=== PATIENT | male | born 1960 | race Caucasian/White ===

== ENCOUNTER 2017-05-17 17:47 | Inpatient (IN) | payer OTHER ==
[~2017-05-17] VITALS: Ht 190.5 cm; Wt 106.6 kg
[~2017-05-17 17:47] MED LIST: ATORVASTATIN CA10 M1 PO; INVOKANA100 M1 PO; JANUVIA100 M1 PO; LISINOPRIL10 M1 PO
[2017-05-17 18:20] LABS: ABSOLUTE BASOPHIL COUNT 0 /CUMM (0.0-0.2); ABSOLUTE EOSINOPHIL COUNT 0.1 /CUMM (0.0-0.7); ABSOLUTE GRANULOCYTE CT 6.5 /CUMM (1.4-6.5); ABSOLUTE LYMPH COUNT 1.8 /CUMM (1.2-3.4); ABSOLUTE MONOCYTE COUNT 0.7 /CUMM (0.10-0.60); BASOPHIL % 0.3 % (0.0-2.0); EOSINOPHIL % 1.5 % (0-5); GRANULOCYTE % 70.8 % (42.2-75.2); HEMATOCRIT 40.8 % (42-52); MEAN CORPUSCULAR HGB 32.8 PG (27.0-31.0); MEAN CORPUSCULAR HGB CONC 33.9 G/DL (33.0-37.0); MEAN CORPUSCULAR VOLUME 96.7 FL (80.0-94.0); MEAN PLATELET VOLUME 9.4 FL (7.4-10.4); PLATELET COUNT 204 /CUMM (130-400); RBC DISTRIBUTION WIDTH 12.2 % (11.5-14.5); RED BLOOD CELL CT 4.22 /CUMM (4.70-6.10); WHITE BLOOD CELL COUNT 9.2 /CUMM (4.8-10.8)
--- NOTE | 2017-05-17 18:41 | ED GENERAL ADULT ---
See Addendum History of Present Illness General Chief Complaint: General Adult Stated Complaint: SIB DR JACOBSON DIABETIC EVAL/INSULIN DRIP PER PT Source: patient Exam Limitations: no limitations Vital Signs & Intake/Output Vital Signs & Intake/Output Vital Signs Date Time Temp Pulse Resp B/P B/P Pulse O2 O2 Flow FiO2 Mean Ox Delivery Rate 05/17 1947 97 Room Air 05/17 1753 97.8 100 18 139/88 95 Room Air Allergies Coded Allergies: coconut oil (ITCHING 08/14/15) shellfish derived (VOMITING 08/14/15) Reconcile Medications Atorvastatin Calcium 10 MG TABLET 1 TAB PO DAILY HEART HEALTH (Reported) Canagliflozin (Invokana) 100 MG TABLET 1 TAB PO DAILY DIABETES (Reported) Lisinopril 10 MG TABLET 1 TAB PO DAILY HEART HEALTH (Reported) Sitagliptin Phosphate (Januvia) 100 MG TABLET 1 TAB PO DAILY DIABETES ( Reported) Triage Note: PT SENT TO ER BY HIS PMD FOR ELEVATED BS, ON ARRIVAL BS GREATER THAN 500 , PT STATES THAT HE IS NIDDM AND THAT HE HAD THE FLU 3 WEEKS AGO HAS NOT FELT RIGHT SINCE. PT STATES THAT HE WAS FEELING OK THIS AM BUT THIS AFTERNOON AFTER EATING HE STARTED TO VOMIT AND DECIDED TO GO SEE HIS DOCTOR. PTS PMD FEELS LIKE HE NEEDS TO BE STARTED ON INSULIN AND NEEDS FLUID Triage Nurses Notes Reviewed? yes Onset: Gradual Duration: getting worse Timing: recent history Severity: moderate Severity Numbers: 5 HPI: Patient is a 57-year-old male with a past medical history of type 2 diabetes, DVT currently on warfarin hypertension and hyperlipidemia who presents emergency room stating that approximately 3 weeks ago he had upper respiratory complaint and flulike symptoms where symptoms resolved with [id number] medications however in the past 5-7 days he's been complaining of increased frequency of urination increased thirst and generalized weakness and fatigue patient does state that "I was being stupid" by not taking my diabetic medications which is INVOKANA AND JANUVIA patient does state that on arrival today he has been complaining of abdominal discomfort and vomiting Patient denies any fever chills nausea vomiting abdominal pain chest pain shortness of breath or dysuria. Patient however has been taking his Coumadin and been compliant (Amilcar Babcock) Past History Travel History Traveled to [place] past 21 day No Medical History Any Pertinent Medical History? see below for history Neurological: NONE EENT: NONE Cardiovascular: NONE Respiratory: NONE Gastrointestinal: COLON CA ILLEOSTOMY/REVERSED Hepatic: NONE Renal: NONE Musculoskeletal: L LEG FX/SX/HDWE Psychiatric: NONE Endocrine: diabetes Blood Disorders: DVT Cancer(s): colon/rectal cancer HUMAN SERVICE COORDINATOR/Reproductive: NONE Tetanus Vaccine: 02/13/16 Surgical History Surgical History: colon resection Psychosocial History Who do you live with Patient/Self Services at Home None What is your primary language Romanian Tobacco Use: Never used ETOH Use: denies use Illicit Drug Use: denies illicit drug use Family History Hx Contributory? No (Amilcar Babcock) Review of Systems Review of Systems Constitutional: Reports: see HPI, malaise, weakness. EENTM: Reports: no symptoms. Respiratory: Reports: no symptoms. Cardiovascular: Reports: no symptoms. GI: Reports: no symptoms. Genitourinary: Reports: no symptoms. Musculoskeletal: Reports: no symptoms. Skin: Reports: no symptoms. Neurological/Psychological: Reports: no symptoms. Hematologic/Endocrine: Reports: see HPI, polyuria, polydipsia. Immunologic/Allergic: Reports: no symptoms. All Other Systems: Reviewed and Negative (Amilcar Babcock) Physical Exam Physical Exam General Appearance: no apparent distress, alert, comfortable Head: atraumatic Eyes: Bilateral: normal appearance, PERRL, EOMI. Ears, Nose, Throat: normal pharynx, normal ENT inspection Neck: normal inspection, supple Respiratory: normal breath sounds, chest non-tender, no respiratory distress Cardiovascular: regular rate/rhythm Peripheral Pulses: 2+ radial (R) Gastrointestinal: normal bowel sounds, soft, non-tender Extremities: normal inspection, normal capillary refill Neurologic/Psych: no motor/sensory deficits, awake, alert, oriented x 3 Skin: intact, normal color Core Measures ACS in differential dx? No CVA/TIA Diagnosis: No Sepsis Present: No Sepsis Focused Exam Completed? No (Amilcar Babcock) Progress Differential Diagnoses I considered the following diagnoses in my evaluation of the patient: [HHS, hyperGLYCEMIA, VIRAL syndrome] Plan of Care: Orders Procedure Date/time Status Heart Healthy Diet 05/18 B Active ED Holding Orders 05/18 2047 Active Admit to inpatient 05/18 2047 Active Code Status 05/18 2047 Active EKG 05/17 192 Active ED Holding Orders 05/17 1856 Active Admit to inpatient 05/17 185 Active Vital Signs 05/17 185 Active Code Status 05/17 185 Complete Add-on Test (ER Only) 05/17 184 Active PARTIAL THROMBOPLASTIN TIME 05/17 180 Complete PROTHROMBIN TIME 05/17 180 Complete LACTIC ACID 05/17 1806 Complete Add-on Test (ER Only) 05/17 180 Active MIXED VENOUS BLOOD GAS (GEN) 05/17 175 Active URINALYSIS 05/18 1755 Complete TROPONIN LEVEL 05/18 1755 Complete SERUM OSMOLALITY 05/18 1755 Complete COMPREHENSIVE METABOLIC PANEL 05/18 1755 Complete CBC WITHOUT DIFFERENTIAL 05/18 1755 Complete ACETONE 05/18 1755 Complete Laboratory Tests 05/17/17 184: APTT Cancelled 05/17/17 182: Urine Color STRAW, Urine Clarity CLEAR, Urine pH 6.0, Ur Specific [place] <= 1.005, Urine Protein NEG, Urine Ketones NEG, Urine Nitrite NEG, Urine Bilirubin NEG, Urine Urobilinogen 0.2, Ur Leukocyte Esterase NEG, Ur Microscopic EXAM NOT REQUIRED, Urine Hemoglobin NEG, Urine Glucose >=1000 H 05/17/171806: Bicarbonate Actual 26, Mixed VBG pH 7.33, Mixed VBG pCO2 50, Mixed VBG O2 Saturation 15 L, Carboxyhemoglobin 0.3 L, O2 Concentration % R/A, Anion Gap 13 , Estimated GFR > 60, BUN/Creatinine Ratio 24.2, Glucose 685 *H, Serum Osmolality 326 H, Lactic Acid 2.9 H, Calcium 10.0, Total Bilirubin 1.4 H, AST 81 H, ALT 123 H, Alkaline Phosphatase 213 H, Troponin I 0.04, Total Protein 7.8, Albumin 4.3, Globulin 3.5, Albumin/Globulin Ratio 1.2, PT 15.8 H, INR 1.44 H, APTT 35, CBC w Diff NO MAN DIFF REQ, RBC 4.22 L, MCV 96.7 H, MCH 32.8 H, MCHC 33.9, RDW 12.2, MPV 9.4, Gran % 70.8, Lymphocytes % 20.0 L, Monocytes % 7.4, Eosinophils % 1.5, Basophils % 0.3, Absolute Granulocytes 6.5, Absolute Lymphocytes 1.8, Absolute Monocytes 0.7 H, Absolute Eosinophils 0.1, Absolute Basophils 0, Phlebotomy Draw Site VENOUS, Acetone Level NEGATIVE Patient on initial presentation was resting comfortable has unremarkable physical exam patient however HAS findings of significantly elevated glucose where IV was established patient was administered IV fluids and insulin. No concerns at this time of DKA Discussed admission with Dr. Moss who agrees and is aware and will consult Patient has been able tolerate by mouth liquids Patient was subtherapeutic INR and took his 5 mg of Coumadin however he will be given administered 2 and half milligrams of Coumadin discussed admission with patient who agrees and has no questions she is resting comfortably at bedside Initial ED EKG: SINUS RHYTHM 77 PVC/PAC Hand-Off Endorsed To: Rony Puentes DO Endorsed Time: 2022 Pending: consult (Amilcar Babcock) Departure Departure Disposition: STILL A PATIENT Condition: Stable Clinical Impression Primary Impression: Hyperglycemia Referrals: Neptali Hawk DO (PCP/Family) Departure Forms: Customer Survey General Discharge Information Admission Note Documentation of Exam: Documentation of any treatments & extenuating circumstances including Concerns Regarding Discharge (functional status, medication knowledge or non-compliance, living conditions, etc.) that warrant an admission rather than observation: [ Patient requires IV fluids endocrinology consultation insulin repeat labs] (Amilcar Babcock) PA/REAL ESTATE MANAGEMENT SPECIALIST Co-Sign Statement Statement: ED Attending supervision documentation- [X] I saw and evaluated the patient. I have also reviewed all the pertinent lab results and diagnostic results. I agree with the findings and the plan of care as documented in the PA's/REAL ESTATE MANAGEMENT SPECIALIST's documentation. [] I have reviewed the ED Record and agree with the PA's/REAL ESTATE MANAGEMENT SPECIALIST's documentation. [] Additions or exceptions (if any) to the PAs/REAL ESTATE MANAGEMENT SPECIALIST's note and plan are summarized below: [] Ptatient with severe hyperglycemia and increased serum osmolarity. He is being admitted for IV fluids and endocrinology consultation, IV insulin therapy. (Rony Puentes DO) Critical Care Note Critical Care Note Critical Care Time: 75-104 min (Amilcar Babcock)
[2017-05-17 19:03] LABS: PT 15.8 SEC (9.4-12.5); PTT 35 SEC (25-37)
--- NOTE | 2017-05-17 21:13 | History & Physical ---
Chelly Jones MD 05/17/172111: General Information and HPI MD Statement: I have seen and personally examined KAYODE TALAVERA and documented this H&P. The patient is a 57 year old M who presented with a patient stated chief complaint of symptoms of hyperglycemia Source of Information: patient, old records, PCP Exam Limitations: no limitations History of Present Illness: Patient is a 57-year-old man with a past medical history significant for type 2 diabetes for 3 years NOT on any current medications, DVT on chronic warfarin, hypertension, hyperlipidemia, colon cancer secondary to ulcerative colitis status post ileostomy and reversal in the , that is sent in by PCP Dr. Hawk for hyperglycemic evaluation. The patient states that about 3 weeks ago he had the flu and " has not felt great since then". At that time he had diarrhea, vomiting, abdominal pain and a fever of 102. About 1-1/2 weeks ago the patient notes he had increased urinary frequency, thirst, weakness, fatigue. Following this he had a "good couple of days" and then today after eating lunch, abruptly began to violently vomit. The patient states that he has not taken his diabetic medications Invokana and Januvia since . He has not taken his blood sugar for a couple of years. On exam, the patient denies any abdominal pain, fever, chills, chest pain, shortness of breath, diarrhea, headache, division changes, loss of consciousness , previous hospitalizations for hyperglycemia, previous irregular heart rhythms. The patient states that he's lost about 15 pounds in the past 3 weeks but attributes that to the flu. Overall since the patient's diabetes diagnosis he has lost about 90 pounds. The patient states that he broke his leg in 2004, no issues for 3 years until he woke up one day with a swollen leg, left side, found to have DVT. Patient is now on chronic Coumadin therapy 7.5 mg on Tuesday and Tuesday and 5 mg the other days. He denies any issues of increased bleeding, recent injury. The patient states that in November he lost his job. The patient has had issues with alcohol the past but has been sober for the past 4 weeks. The patient denies any smoking or drug history. Allergies/Medications Allergies: Coded Allergies: coconut oil (ITCHING 08/14/15) shellfish derived (VOMITING 08/14/15) Compliance With Home Meds: POOR Past History Travel History Traveled to [place] past 21 day No Medical History Neurological: NONE EENT: NONE Cardiovascular: NONE Respiratory: NONE Gastrointestinal: COLON CA ILLEOSTOMY/REVERSED Hepatic: NONE Renal: NONE Musculoskeletal: L LEG FX/SX/HDWE Psychiatric: NONE Endocrine: diabetes Blood Disorders: DVT Cancer(s): colon/rectal cancer INTERNAL CARVER/Reproductive: NONE Tetanus Vaccine: 02/13/16 Surgical History Surgical History: colon resection Past Family/Social History Family History Relations & Conditions if any MOTHER FHx: colon cancer FATHER FHx: colon cancer Psychosocial History Services at Home: None ETOH Use: denies use Illicit Drug Use: denies illicit drug use Functional Ability ADLs Independent: dressing, eating, toileting, bathing. Ambulation: independent Review of Systems Review of Systems Constitutional: Reports: malaise, weakness. EENTM: Reports: no symptoms. Cardiovascular: Reports: no symptoms. Respiratory: Reports: no symptoms. GI: Reports: nausea, vomiting. Genitourinary: Reports: frequency. Musculoskeletal: Reports: no symptoms. Skin: Reports: no symptoms. Neurological/Psychological: Reports: no symptoms. Hematologic/Endocrine: Reports: polyuria, polydipsia. Exam & Diagnostic Data Last 24 Hrs of Vital Signs/I&O Vital Signs Date Time Temp Pulse Resp B/P B/P Pulse O2 O2 Flow FiO2 Mean Ox Delivery Rate 05/17 2327 97.4 87 18 140/60 98 Room Air 05/17 2242 88 18 164/88 98 Room Air 05/17 2100 98.2 61 18 145/70 98 Room Air 05/17 1947 97 Room Air 05/17 1753 97.8 100 18 139/88 95 Room Air Intake & Output 05/18 0800 / 0000 05/17 1600 Intake Total Output Total 150 150 Balance -150 -150 Output, Urine 150 150 Patient 235 lb Weight Weight Reported by Patient Measurement Method Physical Exam General Appearance Alert, Oriented X3, Cooperative, No Acute Distress Skin No Rashes, No Breakdown, No Significant Lesion Skin Temp/Moisture Exam: Warm/Dry Sepsis Skin Exam (color): Normal for Ethnicity HEENT Atraumatic, PERRLA, EOMI, Mucous Membr. moist/pink Neck Supple Cardiovascular Regular Rate, Normal S1, Normal S2, No Murmurs Lungs Clear to Auscultation, Normal Air Movement Abdomen Normal Bowel Sounds, Soft, No Tenderness, No Hepatospenomegaly, No Masses Neurological Normal Speech Extremities No Clubbing, No Cyanosis, No Edema, Normal Pulses, No Tenderness/ Swelling Vascular Normal Pulses, Pulses Symmetrical Last 24 Hrs of Labs/Choco: Laboratory Tests 05/18/17 0128: Lactic Acid Pending 05/17/17 2246: Anion Gap 13, Estimated GFR > 60, BUN/Creatinine Ratio 25.6 H 05/17/17 2246: Lactic Acid 4.0 H, Total Bilirubin 1.1, Direct Bilirubin 0.6 H, AST 70 H, ALT 100 H, Alkaline Phosphatase 174 H, Total Protein 6.9, Albumin 3.6 05/17/17 1842: APTT Cancelled 05/17/17 1820: Urine Color STRAW, Urine Clarity CLEAR, Urine pH 6.0, Ur Specific [place] <= 1.005, Urine Protein NEG, Urine Ketones NEG, Urine Nitrite NEG, Urine Bilirubin NEG, Urine Urobilinogen 0.2, Ur Leukocyte Esterase NEG, Ur Microscopic EXAM NOT REQUIRED, Urine Hemoglobin NEG, Urine Glucose >=1000 H 05/17/17 1807: Bicarbonate Actual 26, Mixed VBG pH 7.33, Mixed VBG pCO2 50, Mixed VBG O2 Saturation 15 L, Carboxyhemoglobin 0.3 L, O2 Concentration % R/A, Anion Gap 13 , Estimated GFR > 60, BUN/Creatinine Ratio 24.2, Glucose 685 *H, Hemoglobin A1c Pending, Serum Osmolality 326 H, Lactic Acid 2.9 H, Calcium 10.0, Phosphorus 5.6 H, Magnesium 1.9, Total Bilirubin 1.4 H, AST 81 H, ALT 123 H, Alkaline Phosphatase 213 H, Troponin I 0.04, Total Protein 7.8, Albumin 4.3, Globulin 3.5, Albumin/Globulin Ratio 1.2, PT 15.8 H, INR 1.44 H, APTT 35, CBC w Diff NO MAN DIFF REQ, RBC 4.22 L, MCV 96.7 H, MCH 32.8 H, MCHC 33.9, RDW 12.2, MPV 9.4, Gran % 70.8, Lymphocytes % 20.0 L, Monocytes % 7.4, Eosinophils % 1.5, Basophils % 0.3, Absolute Granulocytes 6.5, Absolute Lymphocytes 1.8, Absolute Monocytes 0.7 H, Absolute Eosinophils 0.1, Absolute Basophils 0, Phlebotomy Draw Site VENOUS, Acetone Level NEGATIVE Assessment/Plan Assessment: Patient is a 57-year-old man with a past medical history significant for type 2 diabetes for 3 years NOT on any current medications, DVT on chronic warfarin, hypertension, hyperlipidemia, colon cancer secondary to ulcerative colitis status post ileostomy and reversal in the s, that is sent in by PCP Dr. Hawk for hyperglycemic evaluation. The patient had a recent viral illness, complains of increased thirst, urination, weakness, fatigue, and today had a bout of severe vomiting. The patient confesses that he hasn't taken his diabetic medications since January and hasn't regularly checked his blood sugar levels for 2 years. He does not follow with an customer engagement analyst. In the ED, the patient's vitals were stable, blood pressure 139/88, afebrile. His blood glucose on admission was 685. His EKG which lasts showed sinus rhythm at a rate of 73 now shows a sinus arrhythmia, positive P waves, rate of 77. The patient has no cardiac history except for DVT on chronic warfarin, hypertension, hyperlipidemia. He does not follow with a mortar mixer. His WBC count was found to be normal, hemoglobin mildly low, INR 1.44 (goal 2-3), positive glucose but no protein or ketones on UA, anion gap of 13, low potassium at 3.3, normal creatinine, lactic acid of 2.9 on admission, elevated LFTs including direct bilirubin of 0.6, AST 70, a LT 100, alkaline phosphatase 174, acetone level negative, phosphorus level 5.6, normal calcium and magnesium, serum osmolality of 326, mixed venous blood gas pH normal. Plan Out-lpzzdze-bzuasgyrl diabetes mellitus: The differential for the patient's severe vomiting includes gastroenteritis, food poisoning, but is most likely caused by his uncontrolled hyperglycemia, associated with his increased urinary frequency, thirst, weakness, fatigue. The patient admits to not taking his diabetic medications or checking up on his blood sugar. As the patient is a type II diabetic he is more prone to HHS than DKA. From his labs he has a normal anion gap, no acetone level, no acidosis on mixed venous blood gas. His presenting glucose was 685 and his serum osmolality is 326. HHS is more associated with blood glucose levels over 600 and serum osmolality of greater than 320. Elevations in the concentration of liver function enzymes, bilirubin may be secondary to dehydration. The patient was found to be dehydrated and has elevated BUN. He was not found to have any ketonuria. Physical exam findings were negative except for evidence of dehydration. The patient showed no alteration in consciousness. -Start normal saline at a rate of 1 25 mL per hour -Zofran for nausea and vomiting 4 mg every 6 as needed -We have spoken with Dr. Moss, customer engagement analyst, who suggested that we give 20 units of Levemir once and recheck patient's glucose levels in one hour and 2 hours after that, readings were 256 and 170 respectively. -Accuchecks TID/HS -Start novolog sliding scale coverage, over 250 mg/dl start to add insulin coverage, 2 units per ever 50mg/dl glucose increase until 400mg/dl with instructions to call MD after -Hemoglobin A1c -Trend lactic acid: Increased from 2.9-4.04 hours later and then decreased to 1.3 3 hours after that. -Place patient on clear liquid diet and advance as tolerated -We trended LFTs which showed resolution with hydration. EKG change: Noted new sinus arrhythmia. Patient has no symptoms. -No intervention at this time -Repeat EKG in am -Patient instructed to follow up with his PCP on discharge. He has no mortar mixer. Hypokalemia: Hyperkalemia is commonly seen on presentation of patients with HHS secondary to insulin deficiency causing extracellular shift. However this patient was found to have a potassium of 3.3. -We have repleted him with 80 mg K Dur and KCl intravenous 10 mEq 2 as insulin will cause potassium shift into cells -Follow up BEP History DVT -Goal INR is 2.5 -INR found to 1.44 on admission -Patient reports having taken 5mg warfarin today -Dose another 2.5mg Chronic medical problems -Lisinopril 10 mg daily for hypertension Patient is DNR DNI Clear liquid diet DVT prophylaxis with Coumadin (chronically) As Ranked By This Provider Problem List: 1. Hyperglycemia Core Measures/Misc (11/28) Acute Coronary Syndrome ACS Diagnosis: No Congestive Heart Failure Congestive Heart Failure Diagnosis No Cerebrovascular Accident CVA/TIA Diagnosis: No VTE (View Protocol) VTE Risk Factors VTE (Previous) No Mechanical VTE Prophylaxis d/t N/A MechProphylax Ordered No VTE Pharm Prophylaxis d/t NA PharmProphylax ordered Sepsis (View protocol) Sepsis Present: No Davion Rachel 05/17/17 2327: General Information and HPI Allergies/Medications Home Med list Atorvastatin Calcium 10 MG TABLET 1 TAB PO DAILY HEART HEALTH (Reported) Canagliflozin (Invokana) 100 MG TABLET 1 TAB PO DAILY DIABETES (Reported) Lisinopril 10 MG TABLET 1 TAB PO DAILY HEART HEALTH (Reported) Sitagliptin Phosphate (Januvia) 100 MG TABLET 1 TAB PO DAILY DIABETES ( Reported) Warfarin Sodium 5 MG TABLET 1 TAB PO DAILY BLOOD THINNER (Reported) Resident Review Statement Resident Statement: examined this patient, discussed with application support intern, agreed with application support intern, discussed with family, reviewed EMR data (avail), reviewed images Other Findings: He is on 57-year-old man with past medical history of type 2 diabetes, hypertension, DVT on common presented to emergency department from his primary care office for blood sugar control. Patient was diagnosed with diabetes about 4 years ago and he was prescribed Invokana and Januvia but he is not compliant with his medications, he found to have elevated blood sugar with no ketones, no acidosis and no AG, serum osmolality was elevated 326, clinical picture correlated hyperosmolar hyperglycemic state, case discussed with attending and with customer engagement analyst we will manage him with Levemir 20 units tonight, and we will start insulin sliding scale as ordered we will hydrate him with IV normal saline and we will repeat his lab admit night, potassium will be repleted, Accu-Chek before meals and at bedtime, customer engagement analyst to see the patient at a.m., will check A1c, will trend lactic acid, patient noted to have irregular pulse on the examination with ekg decuments A.fib, consider placing a cardiology consult for new onset A.fib ( Patient is not aware of any irregular rhythm in the past) He is on clear liquid diet, advance as tolerated DVT prophylaxis he is on Coumadin, full code [place] [employer], [facility] 05/18/17 0339: Attending MD Review Statement Attending Statement Attending MD Statement: examined this patient, discuss w/resident/PA/UNHAIRER, agreed w/resident/PA/UNHAIRER, reviewed images, amended to note Attending Assessment/Plan: 57 yo M with h/o T2DM, LLE DVT on coumadin, HTN, HLD, ulcerative colitis and colon cancer s/p colectomy, is sent in by his PCP for elevated blood sugars. Patient lost his job last year, he has no insurance and he stopped taking all his medications (excluding coumadin) since Feb 2017. About 3 weeks back, he had 'flu-like symptoms' that resolved with OTC meds, however he developed polyuria, polydipsia, weakness and fatigue so he started taking all his medications about 2 weeks back. He continued to feel fatigued and today he was nauseous and vomited all of the lunch he ate. He currently denies abdominal pain, chest discomfort, dyspnea, nausea or palpitations. He is frustrated that it was a bad decision to stop taking his diabetic meds. He states, "I was being stupid". He is also very anxious as his mother is admitted to [facility] due to her respiratory issues. Vitals stable. Exam suggestive of very dry mucous membranes, otherwise unremarkable. Labs: macrocytic anemia, INR 1.44, Na 129, BUN 29, glucose 685, S. Osm 326, lactic acid 2.9 --> 4.0, T. Bili 1.4, AST 81, ALT 123, Alk phos 213, trop neg. UA glucosuria. Acetone neg. VB.33/50/26. EKG: sinus arrhythmia, multiple PVC, PACs, LAD, Qtc 431. Assessment and plan: 1. Hyperosmolar hyperglycemic state 2. Type 2 diabetes mellitus 3. Noncompliance with medications 4. Pseudohyponatremia corrected sodium is 143 5. Lactic acidosis 6. Transaminitis 7. Subtherapeutic INR on coumadin for DVT 8. Anxiety - Admit to General medicine - Accucheks TIDAC/HS - Recheck stat BEP, lactic acid and LFTs - Aggressive IV hydration with normal saline received 3 L bolus in ER - Continue maintenance at 125/hr - Clear liquid diet, advance diet as tolerated in AM - Endo consult - Levkaye and novolog SS as suggested - Check HbA1c - Counseled about importance of medication compliance - Hold januvia and invokana - Patient has received 7.5 mg coumadin in ER, check INR in AM, dose coumadin accordingly - Hold statin, recheck LFTs after hydration - Resume lisinopril for HTN - Recheck EKG and troponin in AM - I asked the patient if he would like to speak with a Psychiatrist about his anxiety, but he denies for now. DVT ppx coumadin. DNR/I.
[2017-05-17] MEDS ORDERED: WARFARIN SODIUM5 M1 PO (22:28)
[2017-05-17 23:27] VITALS: BP 140/60
--- NOTE | 2017-05-18 03:26 | Admission Certification ---
Admission Certification Certification Statement - As attending physician, I certify that at the time of - admission, based on clinical presentation, severity of - symptoms, need for further diagnostic testing and - therapeutic interventions, and risk of adverse outcomes - without in-hospital treatment, in my clinical assessment, - this patient requires an acute hospital stay for a minimum - of two nights or longer. I have also considered psychsocial - factors such as support system, advanced age, financial - issues, cognitive issues, and failed out-patient treatments, - past re-admission history, safety of patient, and lack of - compliance as applicable. Specific rationale supporting this admission is: Hyperosmolar hyperglycemic state, noncompliance with medications.
[2017-05-18 06:46] VITALS: BP 124/77
--- NOTE | 2017-05-18 07:23 | PN- Housestaff ---
Ngoc WALDROP,Bari 05/18/1722: Subjective Follow-up For: [facility] Subjective: Patient was seen and examined at bedside. He is resting comfortably. He had no acute events overnight. He currently has no complaints. He denies any polydipsia, polyuria, pain of any kind, nausea, vomiting, fever, chills Review of Systems Constitutional: Denies: chills, fever, malaise. Cardiovascular: Reports: no symptoms. Respiratory: Reports: no symptoms. Gastrointestinal: Reports: no symptoms. Genitourinary: Reports: no symptoms. Musculoskeletal: Reports: no symptoms. Objective Last 24 Hrs of Vital Signs/I&O Vital Signs Date Time Temp Pulse Resp B/P B/P Pulse O2 O2 Flow FiO2 Mean Ox Delivery Rate 05/18 0646 97.9 72 18 124/77 98 Room Air 05/17 2327 97.4 87 18 140/60 98 Room Air 05/17 2242 88 18 164/88 98 Room Air 05/17 2100 98.2 61 18 145/70 98 Room Air 05/17 1947 97 Room Air 05/17 1753 97.8 100 18 139/88 95 Room Air Intake & Output 05/18 0800 05/18 0000 05/17 1600 Intake Total Output Total 150 150 Balance -150 -150 Output, Urine 150 150 Patient 235 lb Weight Weight Reported by Patient Measurement Method Physical Exam General Appearance: Alert, Oriented X3, Cooperative, No Acute Distress Skin Temp/Moisture Exam: Warm/Dry Sepsis Skin Exam (color): Normal for Ethnicity Cardiovascular: Regular Rate, Normal S1, Normal S2 Lungs: Clear to Auscultation, Normal Air Movement Abdomen: Soft, No Tenderness, hyperactive bowel sounds, abdominal surgical scar in the midline. Neurological: Normal Gait Extremities: No Clubbing, No Cyanosis, No Edema Current Medications: Current Medications Sig/Prakash Start time Last Medication Dose Route Stop Time Status Admin Acetaminophen 650 MG Q6P PRN 05/17 2230 AC PO Albumin Human 12.5 GM ONCE ONE 05/18 0145 CAN IV 05/18 0146 Atorvastatin Calcium 10 MG DAILY 05/18 1000 CAN PO Insulin Aspart 0 TIDAC/HS 05/17 2245 AC 05/17 SC 2337 Insulin Detemir 20 UNITS ONCE ONE 05/17 2230 DC 05/17 SC 05/17 2231 224 Insulin Human Regular 8 UNITS ONCE ONE 05/17 1900 DC 03/ IV / 1901 1907 Insulin Human Regular 10 UNITS ONCE ONE 05/17 1845 DC / SC 05/17 1846 1906 Lisinopril 10 MG DAILY 05/18 1000 AC PO Ondansetron HCl 4 MG Q6P PRN 05/17 2230 AC IV Potassium Chloride 10 MEQ Q1H 05/18 0300 DC 05/18 IV 05/18 0401 0449 Potassium Chloride 80 MEQ ONCE ONE 05/18 0245 DC 05/18 PO 05/18 0246 0347 Sodium Chloride 1,000 ML Q13H 05/17 2130 DC 03/ IV 05/18 1829 2337 Sodium Chloride 1,000 ML BOLUS ONE 05/17 1900 DC / IV 05/17 1959 2045 Sodium Chloride 1,000 ML BOLUS ONE 05/17 1845 DC / IV / 1944 1853 Sodium Chloride 1,000 ML BOLUS ONE 05/17 1845 DC 03/ IV / 1944 1946 Warfarin Sodium 2.5 MG COUMADIN 1700 ONE 05/17 2245 CAN PO 05/17 224 Warfarin Sodium 2.5 MG ONCE ONE 05/17 2030 DC 03/ PO 05/17 2031 2115 Last 24 Hrs of Lab/Choco Results Last 24 Hrs of Labs/Mics: Laboratory Tests 05/18/17617: Sodium Pending, Potassium Pending, Chloride Pending, Carbon Dioxide Pending, Anion Gap Pending, BUN Pending, Creatinine Pending, BUN/Creatinine Ratio Pending , PT Pending, INR Pending, CBC w Diff Pending, WBC Pending, RBC Pending, Hgb Pending, Hct Pending, MCV Pending, MCH Pending, MCHC Pending, RDW Pending, Plt Count Pending, MPV Pending 05/18/17 0128: Lactic Acid 1.3 05/17/172245: Anion Gap 13, Estimated GFR > 60, BUN/Creatinine Ratio 25.6 H 05/17/172245: Lactic Acid 4.0 H, Total Bilirubin 1.1, Direct Bilirubin 0.6 H, AST 70 H, ALT 100 H, Alkaline Phosphatase 174 H, Total Protein 6.9, Albumin 3.6 05/17/17 184: APTT Cancelled 05/17/17 1820: Urine Color STRAW, Urine Clarity CLEAR, Urine pH 6.0, Ur Specific [place] <= 1.005, Urine Protein NEG, Urine Ketones NEG, Urine Nitrite NEG, Urine Bilirubin NEG, Urine Urobilinogen 0.2, Ur Leukocyte Esterase NEG, Ur Microscopic EXAM NOT REQUIRED, Urine Hemoglobin NEG, Urine Glucose >=1000 H 05/17/17 1807: Bicarbonate Actual 26, Mixed VBG pH 7.33, Mixed VBG pCO2 50, Mixed VBG O2 Saturation 15 L, Carboxyhemoglobin 0.3 L, O2 Concentration % R/A, Anion Gap 13 , Estimated GFR > 60, BUN/Creatinine Ratio 24.2, Glucose 685 *H, Hemoglobin A1c Pending, Serum Osmolality 326 H, Lactic Acid 2.9 H, Calcium 10.0, Phosphorus 5.6 H, Magnesium 1.9, Total Bilirubin 1.4 H, AST 81 H, ALT 123 H, Alkaline Phosphatase 213 H, Troponin I 0.04, Total Protein 7.8, Albumin 4.3, Globulin 3.5, Albumin/Globulin Ratio 1.2, PT 15.8 H, INR 1.44 H, APTT 35, CBC w Diff NO MAN DIFF REQ, RBC 4.22 L, MCV 96.7 H, MCH 32.8 H, MCHC 33.9, RDW 12.2, MPV 9.4, Gran % 70.8, Lymphocytes % 20.0 L, Monocytes % 7.4, Eosinophils % 1.5, Basophils % 0.3, Absolute Granulocytes 6.5, Absolute Lymphocytes 1.8, Absolute Monocytes 0.7 H, Absolute Eosinophils 0.1, Absolute Basophils 0, Phlebotomy Draw Site VENOUS, Acetone Level NEGATIVE Assessment/Plan Assessment: Patient is [id number] male with a PMH significant for type II DM noncompliant with medication and finger stick glucose monitoring, DVT on warfarin, HTN, HLD, colon cancer status post ileostomy and reversal. Patient presented to the ED at recommendations of his PCP Dr. Mccray, after presented with severe nausea and vomiting and was found to have elevated blood glucose. Patient admits to being noncompliant with his finger stick glucose checks and medication for several months. CODE STATUS was discussed with the patient who did not appear to fully understand his options. He was changed to full code although expressed a desire to not undergo aggressive treatment for catastrophic events. But in the short- term he would like to receive CPR and intubation and acute situations. Patient does not have insurance and financial counselor was consulted. Will pursue potential option of [employer] insurance. #HHS Patient presented with glucose level 685. Hgb A1c 17.1. -Levemir 10 units twice a day -NovoLog coverage 3 times a day before meals at bedtime per endocrinology -Endocrinology recommendations appreciated #Hypokalemia, resolved -continue to monitor BEP #Chronic medical problems including HTN, HLD, DVT -Continue home medications including warfarin, daily dosing based on INR Problem List: 1. Uncontrolled type 2 diabetes mellitus with hyperosmolar nonketotic hyperglycemia Pain Ratin Pain Location: none Pain Goal: Remain pain free Pain Plan: pain pathway Tomorrow's Labs & Rationales: cbc, bep, inr Kd Pierce MD 05/18/17 8618: Attending MD Review Statement Attending Statement Attending MD Statement: examined this patient, discuss w/resident/PA/FOREIGN BANKNOTE TELLER, agreed w/resident/PA/FOREIGN BANKNOTE TELLER, reviewed EMR data (avail), discussed with case mgmt, reviewed images, amended to note Attending Assessment/Plan: The patient was seen and discussed with house staff. Sugars better. Appreciate Endocrinology input. 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 Currently w/o medical insurance and had discontinued medication as OP. Financial counseling to meet with patient in morning. Will get 1 month of meds at time of discharge. He may be eligible for Phytelky. Also discussed code status with patient and he states wishes to be full code. Needs advanced directives.
[2017-05-18 08:18] LABS: ABSOLUTE BASOPHIL COUNT 0 /CUMM (0.0-0.2); ABSOLUTE EOSINOPHIL COUNT 0.2 /CUMM (0.0-0.7); ABSOLUTE LYMPH COUNT 2.3 /CUMM (1.2-3.4); ABSOLUTE MONOCYTE COUNT 0.4 /CUMM (0.10-0.60); BASOPHIL % 0.4 % (0.0-2.0); EOSINOPHIL % 2.6 % (0-5); GRANULOCYTE % 57.8 % (42.2-75.2); MEAN CORPUSCULAR HGB 33.9 PG (27.0-31.0); MEAN CORPUSCULAR VOLUME 96.7 FL (80.0-94.0); MEAN PLATELET VOLUME 9.6 FL (7.4-10.4); PLATELET COUNT 103 /CUMM (130-400); PT 19.5 SEC (9.4-12.5); RBC DISTRIBUTION WIDTH 12.3 % (11.5-14.5); WHITE BLOOD CELL COUNT 6.9 /CUMM (4.8-10.8)
[2017-05-18 08:43] LABS: HEMATOCRIT 31.9 % (42-52)
--- NOTE | 2017-05-18 09:55 | Cons- Endocrinology ---
General Information and HPI Consulting Request Date of Consult: 05/18/17 Requested By: medical team Reason for Consult: management of uncontrolled diabetes/ HHS Source of Information: patient, old records Exam Limitations: no limitations History of Present Illness: Patient is a 57-year-old man with a past medical history significant for type 2 diabetes which was diagnosed 3-4 years ago, DVT on chronic warfarin, hypertension, hyperlipidemia, colon cancer secondary to ulcerative colitis status post ileostomy and reversal. He presented to ER with a chief complaints of feeling ill. His glucose level was found to be 685 withbicarb 26, negative acetone and lactic acide of 2.6 which were consistent with HHS. In ER, he received insulin and IVF and his glucose level was improving. Then, he was admitted to floor. Last night, he received Levemir 20 units and his FSGs were 256, 120, 170, 165 and 237. Patient was initially put on metformin which was discontinued due to GI side effects. Then he was supposed to take Invokana 100 mg daily and Januvia 100 mg daily. But he discontinued them on his own at around 2016. He didn't check his glucose levels at home. Allergies/Medications Allergies: Coded Allergies: coconut oil (ITCHING 08/14/15) shellfish derived (VOMITING 08/14/15) Home Med List: Atorvastatin Calcium 10 MG TABLET 1 TAB PO DAILY HEART HEALTH (Reported) Canagliflozin (Invokana) 100 MG TABLET 1 TAB PO DAILY DIABETES (Reported) Lisinopril 10 MG TABLET 1 TAB PO DAILY HEART HEALTH (Reported) Sitagliptin Phosphate (Januvia) 100 MG TABLET 1 TAB PO DAILY DIABETES ( Reported) Warfarin Sodium 5 MG TABLET 1 TAB PO DAILY BLOOD THINNER (Reported) Review of Systems Review of Systems Constitutional: Reports: see HPI. Cardiovascular: Denies: chest pain. Respiratory: Denies: short of breath. GI: Denies: abdominal pain. Genitourinary: Reports: frequency. Hematologic/Endocrine: Reports: polyuria, polydipsia. Past History Travel History Traveled to [place] past 21 day No Medical History Blood Transfusion Hx: Yes Neurological: NONE EENT: NONE Cardiovascular: NONE Respiratory: NONE Gastrointestinal: COLON CA ILLEOSTOMY/REVERSED Hepatic: NONE Renal: NONE Musculoskeletal: L LEG FX/SX/HDWE Psychiatric: NONE Endocrine: diabetes Blood Disorders: DVT Cancer(s): colon/rectal cancer VENEER STACKER/Reproductive: NONE Surgical History Surgical History: colon resection Family History Relations & Conditions If Any: MOTHER FHx: colon cancer FATHER FHx: colon cancer Psychosocial History Where Do You Live? Home Services at Home: None Smoking Status: Never Smoked ETOH Use: denies use Illicit Drug Use: denies illicit drug use Functional Ability ADLs Independent: dressing, eating, toileting, bathing. Ambulation: independent Exam & Diagnostic Data Last 24 Hrs of Vital Signs/I&O Vital Signs Date Time Temp Pulse Resp B/P B/P Pulse O2 O2 Flow FiO2 Mean Ox Delivery Rate 05/18 0646 97.9 72 18 124/77 98 Room Air 05/17 2327 97.4 87 18 140/60 98 Room Air 05/17 2242 88 18 164/88 98 Room Air 05/17 2100 98.2 61 18 145/70 98 Room Air 05/17 1947 97 Room Air 05/17 1753 97.8 100 18 139/88 95 Room Air Intake & Output 05/18 1600 05/18 0800 05/18 0000 Intake Total 1560 Output Total 725 150 Balance 835 -150 Intake, IV 1200 Intake, Oral 360 Number 1 Bowel Movements Output, Urine 725 150 Patient 235 lb Weight Weight Reported by Patient Measurement Method Physical Exam General Appearance: no apparent distress Neck: supple Respiratory: lungs clear Cardiovascular: regular rate/rhythm Gastrointestinal: soft, non-tender Extremities: no edema Labs/Choco Results: Laboratory Tests 05/1818 0128 2246 2246 Chemistry Sodium (137 - 145 mmol/L) 139 137 Potassium (3.5 - 5.1 mmol/L) 3.9 3.3 L Chloride (98 - 107 mmol/L) 104 99 Carbon Dioxide (22 - 30 mmol/L) 25 25 Anion Gap (5 - 16) 11 13 BUN (9 - 20 mg/dL) 17 23 H Creatinine (0.7 - 1.2 mg/dL) 0.8 0.9 Estimated GFR (>60 ml/min) > 60 > 60 BUN/Creatinine Ratio (7 - 25 %) 21.3 25.6 H Lactic Acid (0.7 - 2.1 mmol/L) 1.3 4.0 H Total Bilirubin (0.2 - 1.3 mg/dL) 1.1 Direct Bilirubin (< 0.4 mg/dL) 0.6 H AST (17 - 59 U/L) 70 H ALT (21 - 72 U/L) 100 H Alkaline Phosphatase (< 127 U/L) 174 H Total Protein (6.3 - 8.2 g/dL) 6.9 Albumin (3.5 - 5.0 g/dL) 3.6 Coagulation PT (9.4 - 12.5 SEC) 19.5 H INR (0.90 - 1.17) 1.78 H Hematology CBC w Diff NO MAN DIFF REQ WBC (4.8 - 10.8 /CUMM) 6.9 RBC (4.70 - 6.10 /CUMM) 3.30 L Hgb (14.0 - 18.0 G/DL) 11.2 L Hct (42 - 52 %) 31.9 L MCV (80.0 - 94.0 FL) 96.7 H MCH (27.0 - 31.0 PG) 33.9 H MCHC (33.0 - 37.0 G/DL) 35.0 RDW (11.5 - 14.5 %) 12.3 Plt Count (130 - 400 /CUMM) 103 L MPV (7.4 - 10.4 FL) 9.6 Gran % (42.2 - 75.2 %) 57.8 Lymphocytes % (20.5 - 51.1 %) 32.9 Monocytes % (1.7 - 9.3 %) 6.3 Eosinophils % (0 - 5 %) 2.6 Basophils % (0.0 - 2.0 %) 0.4 Absolute Granulocytes (1.4 - 6.5 /CUMM) 4.0 Absolute Lymphocytes (1.2 - 3.4 /CUMM) 2.3 Absolute Monocytes (0.10 - 0.60 /CUMM) 0.4 Absolute Eosinophils (0.0 - 0.7 /CUMM) 0.2 Absolute Basophils (0.0 - 0.2 /CUMM) 0 05/17 05/17 1842 1820 Coagulation APTT Cancelled Urines Urine Color (YEL,AMB,STR) STRAW Urine Clarity (CLEAR) CLEAR Urine pH (5.0 - 8.0) 6.0 Ur Specific [place] (1.001 - 1.035) <= 1.005 Urine Protein (NEG,<30 MG/DL) NEG Urine Ketones (NEG) NEG Urine Nitrite (NEG) NEG Urine Bilirubin (NEG) NEG Urine Urobilinogen (0.1 - 1.0 EU/dl) 0.2 Ur Leukocyte Esterase (NEG) NEG Ur Microscopic EXAM NOT REQUIRED Urine Hemoglobin (NEG) NEG Urine Glucose (N MG/DL) >=1000 H 05/17 1807 Blood Gas Bicarbonate Actual (22 - 26 MEQ/L) 26 Mixed VBG pH (7.31 - 7.41 PH) 7.33 Mixed VBG pCO2 (41 - 51 TORR) 50 Mixed VBG O2 Saturation (35 - 45 TORR) 15 L Carboxyhemoglobin (1.5 - 5.0 %) 0.3 L O2 Concentration % R/A Chemistry Sodium (137 - 145 mmol/L) 129 L Potassium (3.5 - 5.1 mmol/L) 4.3 Chloride (98 - 107 mmol/L) 90 L Carbon Dioxide (22 - 30 mmol/L) 26 Anion Gap (5 - 16) 13 BUN (9 - 20 mg/dL) 29 H Creatinine (0.7 - 1.2 mg/dL) 1.2 Estimated GFR (>60 ml/min) > 60 BUN/Creatinine Ratio (7 - 25 %) 24.2 Glucose (65 - 99 mg/dL) 685 *H Hemoglobin A1c (4.2 - 5.8 %) Pending Serum Osmolality (285 - 295 MOSM/KG) 326 H Lactic Acid (0.7 - 2.1 mmol/L) 2.9 H Calcium (8.4 - 10.2 mg/dL) 10.0 Phosphorus (2.5 - 4.5 mg/dL) 5.6 H Magnesium (1.6 - 2.3 mg/dL) 1.9 Total Bilirubin (0.2 - 1.3 mg/dL) 1.4 H AST (17 - 59 U/L) 81 H ALT (21 - 72 U/L) 123 H Alkaline Phosphatase (< 127 U/L) 213 H Troponin I (<0.11 ng/ml) 0.04 Total Protein (6.3 - 8.2 g/dL) 7.8 Albumin (3.5 - 5.0 g/dL) 4.3 Globulin (1.9 - 4.2 gm/dL) 3.5 Albumin/Globulin Ratio (1.1 - 2.2 %) 1.2 Coagulation PT (9.4 - 12.5 SEC) 15.8 H INR (0.90 - 1.17) 1.44 H APTT (25 - 37 SEC) 35 Hematology CBC w Diff NO MAN DIFF REQ WBC (4.8 - 10.8 /CUMM) 9.2 RBC (4.70 - 6.10 /CUMM) 4.22 L Hgb (14.0 - 18.0 G/DL) 13.9 L Hct (42 - 52 %) 40.8 L MCV (80.0 - 94.0 FL) 96.7 H MCH (27.0 - 31.0 PG) 32.8 H MCHC (33.0 - 37.0 G/DL) 33.9 RDW (11.5 - 14.5 %) 12.2 Plt Count (130 - 400 /CUMM) 204 MPV (7.4 - 10.4 FL) 9.4 Gran % (42.2 - 75.2 %) 70.8 Lymphocytes % (20.5 - 51.1 %) 20.0 L Monocytes % (1.7 - 9.3 %) 7.4 Eosinophils % (0 - 5 %) 1.5 Basophils % (0.0 - 2.0 %) 0.3 Absolute Granulocytes (1.4 - 6.5 /CUMM) 6.5 Absolute Lymphocytes (1.2 - 3.4 /CUMM) 1.8 Absolute Monocytes (0.10 - 0.60 /CUMM) 0.7 H Absolute Eosinophils (0.0 - 0.7 /CUMM) 0.1 Absolute Basophils (0.0 - 0.2 /CUMM) 0 Miscellaneous Phlebotomy Draw Site VENOUS Toxicology Acetone Level (NEGATIVE) NEGATIVE Assessment/Plan Assessment/Plan Patient is a 57-year-old man with a past medical history significant for type 2 diabetes which was diagnosed 3-4 years ago, DVT on chronic warfarin, hypertension, hyperlipidemia, colon cancer secondary to ulcerative colitis status post ileostomy and reversal. He presented to ER with glucose level of over 600. He received insulin and IVF and his glucose level has been improving. Clinically he feels better as well. Plan for DM: 1. DM education; nutrition consult; 2. start Levemir 10 units twice a day; 3.Start Novolog coverage before meals and Novolog coverage at bedtime; detail see the inpatient DM order; 4. monitor FSGs; follow HbA1c. will follow. Inpatient Diabetes Orders Before Each Meal: Bolus Insulin: Novolog < 80 mg/dl: no coverage 80-100 mg/dl: 4 units 101-120 mg/dl: 4 units 121-150 mg/dl: 4 units 151-200 mg/dl: 6 units 201-250 mg/dl: 8 units 251-300 mg/dl: 10 units 301-350 mg/dl: 12 units 351-400 mg/dl: 14 units > 400 mg/dl: 16 units Bedtime: Bolus Insulin: Novolog < 80 mg/dl: no coverage 80-100 mg/dl: no coverage 101-120 mg/dl: no coverage 121-150 mg/dl: no coverage 151-200 mg/dl: no covergae 201-250 mg/dl: no coverage 251-300 mg/dl: 2 units 301-350 mg/dl: 3 units 351-400 mg/dl: 4 units > 400 mg/dl: 5 units Consult Acknowledgment - Thank you for your consult request.
[2017-05-18 14:22] VITALS: BP 120/72
[2017-05-18 21:49] VITALS: BP 125/71
[2017-05-19 06:53] VITALS: BP 124/80
--- NOTE | 2017-05-19 07:21 | PN- Housestaff ---
Ngoc WALDROP,Bari 05/19/17 0720: Subjective Follow-up For: Uncontrolled diabetes Subjective: Patient was seen and examined bedside. He is resting comfortably. He had no acute events overnight. He continues to have urinary frequency and has had a few episodes of urinary incontinence while sleeping. He has no other complaints. He currently denies any chest pain, palpitations, nausea vomiting, fever, chills. Review of Systems Constitutional: Denies: chills, fever. Cardiovascular: Denies: chest pain, palpitations. Respiratory: Denies: cough, short of breath. Gastrointestinal: Denies: abdominal pain, melena, nausea, bloody stool, vomiting. Genitourinary: Reports: see HPI, frequency. Musculoskeletal: Reports: no symptoms. Neurological/Psychological: Denies: numbness, paresthesia, tingling. Objective Last 24 Hrs of Vital Signs/I&O Vital Signs Date Time Temp Pulse Resp B/P B/P Pulse O2 O2 Flow FiO2 Mean Ox Delivery Rate 05/19 0553 98.1 72 20 124/80 99 Room Air 05/18 2148 99.1 62 20 125/71 100 05/18 1422 98.2 70 20 120/72 97 Intake & Output 05/19 0800 05/19 0000 05/18 1600 Intake Total 2049 Output Total 250 Balance -250 2049 Intake, IV 0 Intake, Oral 2049 Number 0 Bowel Movements Output, Urine 250 Physical Exam General Appearance: Alert, Oriented X3, Cooperative, No Acute Distress Skin Temp/Moisture Exam: Warm/Dry Cardiovascular: Regular Rate, Normal S1, Normal S2 Lungs: Clear to Auscultation, Normal Air Movement Abdomen: Normal Bowel Sounds, Soft, No Tenderness Neurological: Normal Speech, Normal Tone, Sensation Intact Extremities: No Clubbing, No Cyanosis, No Edema Current Medications: Current Medications Sig/Prakash Start time Last Medication Dose Route Stop Time Status Admin Acetaminophen 650 MG Q6P PRN 05/17 2230 AC PO Insulin Aspart 0 TIDAC/HS 05/17 2245 AC 05/18 SC 2122 Insulin Detemir 10 UNITS BID 05/18 1130 AC 05/18 SC 2122 Lisinopril 10 MG DAILY 05/18 1000 AC 05/18 PO 1725 Ondansetron HCl 4 MG Q6P PRN 05/17 2230 AC IV Patient Medication 1 ED ONE ONE 05/18 1030 DC Teaching ED 05/18 1031 Warfarin Sodium 7.5 MG COUMADIN 1700 ONE 05/18 1700 DC 05/18 PO 05/18 1701 1851 Last 24 Hrs of Lab/Choco Results Last 24 Hrs of Labs/Mics: Laboratory Tests 05/19/17 0705: Anion Gap 7, Estimated GFR > 60, BUN/Creatinine Ratio 20.0, PT 21.8 H, INR 1.99 H, CBC w Diff NO MAN DIFF REQ, RBC 3.53 L, MCV 96.3 H, MCH 33.6 H, MCHC 34.8 , RDW 12.8, MPV 9.8, Gran % 55.6, Lymphocytes % 34.1, Monocytes % 7.6, Eosinophils % 2.3, Basophils % 0.4, Absolute Granulocytes 3.0, Absolute Lymphocytes 1.8, Absolute Monocytes 0.4, Absolute Eosinophils 0.1, Absolute Basophils 0 Orders Fingersticks (last 24 hrs): 184-327 Assessment/Plan Assessment: Patient is [id number] male with a PMH significant for type II DM noncompliant with medication and finger stick glucose monitoring, DVT on warfarin, HTN, HLD, colon cancer status post ileostomy and reversal. Patient presented to the ED at recommendations of his PCP Dr. Mccray, after presented with severe nausea and vomiting and was found to have elevated blood glucose. Patient admits to being noncompliant with his finger stick glucose checks and medication for several months. #HHS/uncontrolled DM Patient presented with glucose level 685. Hgb A1c 17.1. -start metformin 500 mg daily with dinner with the hopes of not having to DC the patient on insulin coverage -increased Levemir to 12 units twice a day -NovoLog coverage 3 times a day before meals at bedtime per endocrinology -Endocrinology recommendations appreciated -If patient tolerates metformin overnight it will be reasonable to discharge him home tomorrow #Chronic medical problems including HTN, HLD, DVT -Continue home medications including warfarin, daily dosing based on INR Problem List: 1. Uncontrolled type 2 diabetes mellitus with hyperosmolar nonketotic hyperglycemia Pain Ratin Pain Location: none Pain Goal: Remain pain free Pain Plan: pain pathway Tomorrow's Labs & Rationales: Zeus Simpson MD 05/19/17 1356: Attending MD Review Statement Attending Statement Attending MD Statement: examined this patient, discuss w/resident/PA/RETURN CLERK, agreed w/resident/PA/RETURN CLERK, reviewed EMR data (avail) Attending Assessment/Plan: Glucose levels still elevated. Patient with no complaints. Will follow endocrine recommendations for inpatient and for discharge, work with transition social worker and financial investment adviser for meds on discharge and outpatient follow up, anticipated discharge tomorrow.
[2017-05-19 08:20] LABS: ABSOLUTE BASOPHIL COUNT 0 /CUMM (0.0-0.2); ABSOLUTE EOSINOPHIL COUNT 0.1 /CUMM (0.0-0.7); ABSOLUTE LYMPH COUNT 1.8 /CUMM (1.2-3.4); ABSOLUTE MONOCYTE COUNT 0.4 /CUMM (0.10-0.60); BASOPHIL % 0.4 % (0.0-2.0); EOSINOPHIL % 2.3 % (0-5); GRANULOCYTE % 55.6 % (42.2-75.2); MEAN CORPUSCULAR HGB 33.6 PG (27.0-31.0); MEAN CORPUSCULAR HGB CONC 34.8 G/DL (33.0-37.0); MEAN PLATELET VOLUME 9.8 FL (7.4-10.4); PLATELET COUNT 117 /CUMM (130-400); RBC DISTRIBUTION WIDTH 12.8 % (11.5-14.5); RED BLOOD CELL CT 3.53 /CUMM (4.70-6.10); WHITE BLOOD CELL COUNT 5.4 /CUMM (4.8-10.8)
[2017-05-19 08:40] LABS: PT 21.8 SEC (9.4-12.5)
[2017-05-19 08:41] LABS: MEAN CORPUSCULAR VOLUME 96.3 FL (80.0-94.0)
--- NOTE | 2017-05-19 12:29 | PN- Diabetes ---
Assessment/Plan Diabetes Assessment: Patient is a 57-year-old man with a past medical history significant for type 2 diabetes which was diagnosed 3-4 years ago, DVT on chronic warfarin, hypertension, hyperlipidemia, colon cancer secondary to ulcerative colitis status post ileostomy and reversal. He presented to ER with glucose level of over 600 and HbA1c of 17.1%. He was put on Levemir 10 units twice a day; Novolog coverage before meals and Novolog coverage at bedtime. His FSGs were 237, 270, 187, 327, 297, 283, 223, 201 and 262. Plan: 1. increase Levemir to 12 units twice a day; 2. start metformin 500 mg daily with dinner; 3. adjust Novolog coverage before meals; detail see the inpatient DM order; 4. continue the current Novolog coverage at bedtime; 5. monitor FSGs. will follow. Inpatient Diabetes Orders Before Each Meal: Bolus Insulin: Novolog < 80 mg/dl: no coverage 80-100 mg/dl: 6 units 101-120 mg/dl: 6 units 121-150 mg/dl: 6 units 151-200 mg/dl: 8 units 201-250 mg/dl: 10 units 251-300 mg/dl: 12 units 301-350 mg/dl: 14 units 351-400 mg/dl: 16 units > 400 mg/dl: 18 units Subjective Subjective: he feels better. Objective Last 24 Hrs of Vital Signs/I&O Vital Signs Date Time Temp Pulse Resp B/P B/P Pulse O2 O2 Flow FiO2 Mean Ox Delivery Rate 05/19 1134 72 124/80 05/19 0653 98.1 72 20 124/80 99 Room Air 05/18 2149 99.1 62 20 125/71 100 05/18 1422 98.2 70 20 120/72 97 Intake & Output 05/19 1600 05/19 0800 05/19 0000 Intake Total Output Total 250 Balance -250 Output, Urine 250 Findings Pertinent Lab/Choco Results: Laboratory Tests 05/19 704 Chemistry Sodium (137 - 145 mmol/L) 137 Potassium (3.5 - 5.1 mmol/L) 4.0 Chloride (98 - 107 mmol/L) 105 Carbon Dioxide (22 - 30 mmol/L) 25 Anion Gap (5 - 16) 7 BUN (9 - 20 mg/dL) 16 Creatinine (0.7 - 1.2 mg/dL) 0.8 Estimated GFR (>60 ml/min) > 60 BUN/Creatinine Ratio (7 - 25 %) 20.0 Coagulation PT (9.4 - 12.5 SEC) 21.8 H INR (0.90 - 1.17) 1.99 H Hematology CBC w Diff NO MAN DIFF REQ WBC (4.8 - 10.8 /CUMM) 5.4 RBC (4.70 - 6.10 /CUMM) 3.53 L Hgb (14.0 - 18.0 G/DL) 11.9 L Hct (42 - 52 %) 34.0 L MCV (80.0 - 94.0 FL) 96.3 H MCH (27.0 - 31.0 PG) 33.6 H MCHC (33.0 - 37.0 G/DL) 34.8 RDW (11.5 - 14.5 %) 12.8 Plt Count (130 - 400 /CUMM) 117 L MPV (7.4 - 10.4 FL) 9.8 Gran % (42.2 - 75.2 %) 55.6 Lymphocytes % (20.5 - 51.1 %) 34.1 Monocytes % (1.7 - 9.3 %) 7.6 Eosinophils % (0 - 5 %) 2.3 Basophils % (0.0 - 2.0 %) 0.4 Absolute Granulocytes (1.4 - 6.5 /CUMM) 3.0 Absolute Lymphocytes (1.2 - 3.4 /CUMM) 1.8 Absolute Monocytes (0.10 - 0.60 /CUMM) 0.4 Absolute Eosinophils (0.0 - 0.7 /CUMM) 0.1 Absolute Basophils (0.0 - 0.2 /CUMM) 0
[2017-05-19 14:32] VITALS: BP 124/78
[2017-05-19 22:15] VITALS: BP 124/70
--- NOTE | 2017-05-20 06:58 | PN- Housestaff ---
Ngoc WALDROP,Bari 05/20/17 0657: Subjective Follow-up For: Uncontrolled diabetes mellitus Subjective: Patient was seen and examined at bedside. He is resting comfortably. He had no acute events overnight. He currently has no complaints and feels very well today. He is looking forward to his discharge today. Review of Systems Constitutional: Denies: chills, fever. Cardiovascular: Denies: chest pain, palpitations. Respiratory: Denies: cough, short of breath. Gastrointestinal: Denies: abdominal pain, melena, nausea. Genitourinary: Reports: no symptoms. Musculoskeletal: Reports: no symptoms. Objective Last 24 Hrs of Vital Signs/I&O Vital Signs Date Time Temp Pulse Resp B/P B/P Pulse O2 O2 Flow FiO2 Mean Ox Delivery Rate 05/19 2215 98.0 60 18 124/70 97 Room Air 05/19 1432 98.1 72 20 124/78 98 Room Air 05/19 1134 72 124/80 Intake & Output 05/20 0800 05/20 0000 05/19 1600 Intake Total 229 531 5125 Output Total Balance 182 433 2903 Intake, Oral 998 663 3428 Number 1 2 Bowel Movements Patient 235 lb Weight Physical Exam General Appearance: Alert, Oriented X3, Cooperative, No Acute Distress Cardiovascular: Regular Rate, Normal S1, Normal S2 Lungs: Clear to Auscultation, Normal Air Movement Abdomen: Normal Bowel Sounds, Soft, No Tenderness Neurological: Normal Speech, Strength at 5/5 X4 Ext, Sensation Intact, Cranial Nerves 3-12 NL Extremities: No Clubbing, No Cyanosis, compression stockings in place Current Medications: Current Medications Sig/Prakash Start time Last Medication Dose Route Stop Time Status Admin Acetaminophen 650 MG Q6P PRN 05/17 2230 AC PO Insulin Aspart 0 TIDAC/HS 05/17 2245 AC 05/19 SC 1656 Insulin Detemir 12 UNITS BID 05/19 2200 AC 05/19 SC 2155 Insulin Detemir 10 UNITS BID 05/18 1130 DC 05/19 SC 0933 Lisinopril 10 MG DAILY 05/18 1000 AC 05/19 PO 1134 Metformin HCl 500 MG 1700 05/19 1700 AC 05/19 PO 1656 Ondansetron HCl 4 MG Q6P PRN 05/17 2230 AC IV Warfarin Sodium 7.5 MG COUMADIN 1700 ONE 05/19 1700 DC 05/19 PO 05/19 1701 1656 Warfarin Sodium 10 MG .STK-MED ONE 05/19 1655 DC PO 05/19 1656 Last 24 Hrs of Lab/Choco Results Last 24 Hrs of Labs/Mics: Laboratory Tests 05/20/17 0710: PT 28.0 H, INR 2.54 H Orders Fingersticks (last 24 hrs): 184-266 Assessment/Plan Assessment: Patient is [id number] male with a PMH significant for type II DM noncompliant with medication and finger stick glucose monitoring, DVT on warfarin, HTN, HLD, colon cancer status post ileostomy and reversal. Patient presented to the ED at recommendations of his PCP Dr. Mccray, after presented with severe nausea and vomiting and was found to have elevated blood glucose. Patient admits to being noncompliant with his finger stick glucose checks and medication for several months. #HHS/uncontrolled DM Patient presented with glucose level 685. Hgb A1c 17.1. -Patient tolerated metformin well, 36 glucose levels remained well controlled. -Endocrinology recommendations appreciated -He will be discharged on metformin 500 mg twice a day, glimepiride 4 mg daily, Levemir 24 units daily, instructed to take 12 units this evening -He will be instructed to follow-up with Dr. merrill and his PCP as an outpatient -working with social work to get indigent medication coverage #Chronic medical problems including HTN, HLD, DVT -Continue home medications including warfarin, daily dosing based on INR Problem List: 1. Uncontrolled type 2 diabetes mellitus with hyperosmolar nonketotic hyperglycemia Pain Ratin Pain Location: none Pain Goal: Remain pain free Pain Plan: pain pathway Tomorrow's Labs & Rationales: none Discharge Plan Discharge Disposition: home Stable for Discharge? Yes Anticipated Discharge (Day): today If Discharged Today/In 24 Hrs: DC summary done, CMR done Zeus Toure MD 05/20/17 1130: Attending MD Review Statement Attending Statement Attending MD Statement: examined this patient, discuss w/resident/PA/RN [facility], agreed w/resident/PA/RN [facility], reviewed EMR data (avail) Attending Assessment/Plan: Doing well today, glucose levels improved, asymptomatic. Will discharge home on Metformin, Glimeperide, Levemir per endocrine recommendations with outpatient follow up with Dr. Merrill.
[2017-05-20 07:05] VITALS: BP 128/78
--- NOTE | 2017-05-20 08:29 | PN- Diabetes ---
Assessment/Plan Diabetes Assessment: Patient is a 57-year-old man with a past medical history significant for type 2 diabetes which was diagnosed 3-4 years ago, DVT on chronic warfarin, hypertension, hyperlipidemia, colon cancer secondary to ulcerative colitis status post ileostomy and reversal. He presented to ER with glucose level of over 600 and HbA1c of 17.1%. Currently he is on Levemir 12 units twice a day; Novolog coverage before meals and Novolog coverage at bedtime. Metformin 500 mg daily with dinner was initiated last night and he tolerated it well. His FSGs were 255, 251, 200, 179, 232, 190 and 184. Most likely he will go home today. Plan: Continue the current DM regimen for now; Discharge plan for DM: ---Levemir 12 units at bedtime tonight as he will receive Levemir 12 units this morning in the hospital; ---Levemir 24 units daily starting tomorrow; ---no Novolog at this point; ---Metformin 500 mg twice a day with breakfast and with dinner; ---Glimepiride 4 mg twice a day right before breakfast and right before dinner; ---monitor FSGs x 3 times a day; ---f/u in office after discharge. Subjective Subjective: He feels well this morning. Objective Last 24 Hrs of Vital Signs/I&O Vital Signs Date Time Temp Pulse Resp B/P B/P Pulse O2 O2 Flow FiO2 Mean Ox Delivery Rate 05/20 704 98.0 64 18 128/78 100 Room Air 05/19 2215 98.0 60 18 124/70 97 Room Air 05/19 1432 98.1 72 20 124/78 98 Room Air 05/19 1134 72 124/80 Intake & Output 05/20 1600 05/20 0800 05/20 0000 Intake Total 240 720 Output Total Balance 240 720 Intake, Oral 240 720 Number 1 Bowel Movements Findings Pertinent Lab/Choco Results: Laboratory Tests 05/20 709 Coagulation PT (9.4 - 12.5 SEC) 28.0 H INR (0.90 - 1.17) 2.54 H
[2017-05-20] MEDS ORDERED: METFORMIN HCL500 M4 PO (08:47)
[2017-05-20] MEDS ORDERED: GLIMEPIRIDE4 M1 PO (08:47)
[2017-05-20] MEDS ORDERED: LEVEMIR100 UNIT/1 SC (08:47)
--- NOTE | 2017-05-20 08:57 | Patient Discharge Instructions ---
Discharge Instructions General Discharge Information You were seen/treated for: Hyperosmolar Hyperglycemic state Special Instructions: Take all mediactions as directed. Continue to get your INR checked regularly with Dr. Hawk. The night of discharge take 12 units of Levemir subcutaneously. Starting 05/21/17 take 24 uints daily. Check your fingerstick glucose levels 3 times daily. Follow-up with Dr. Moss within 1 week of discharge. Follow-up with your primary care physician within 1 week of discharge. If you should have severe nausea and vomiting, light headedness, loss of consciousness, chest pain or palpitations call your doctor or return to the ER. Diet Recommended Diet: Diabetic Acute Coronary Syndrome Inclusion Criteria At DC or during hospital stay patient has or had the following: ACS DIAGNOSIS No Discharge Core Measures Meds if any: Prescribed or Continued at Discharge Meds if any: NOT Prescribed or Continued at Discharge Congestive Heart Failure Inclusion Criteria At DC or during hospital stay patient has or had the following: CHF DIAGNOSIS No Discharge Core Measures Meds if any: Prescribed or Continued at Discharge Meds if any: NOT Prescribed or Continued at Discharge Cerebrovascular accident Inclusion Criteria At DC or during hospital stay patient has or had the following: CVA/TIA Diagnosis No Discharge Core Measures Meds if any: Prescribed or Continued at Discharge Meds if any: NOT Prescribed or Continued at Discharge Venous thromboembolism Inclusion Criteria VTE Diagnosis No VTE Type NONE VTE Confirmed by (Test) NONE Discharge Core Measures - Per Current guidelines, there needs to be overlap - treatment for the first 5 days of Warfarin therapy. - If discharged on Warfarin prior to 5 days of - overlap therapy, the patient will need to be - assessed for post discharge needs including - *Post discharge parental anticoagulation - *Warfarin and/or parental anticoagulation education - *Follow up date to check INR post discharge At least 5 days overlap therapy as Inpatient No Meds if any: Prescribed or Continued at Discharge Note: Overlap Therapy is Warfarin and Anticoagulant Meds if any: NOT Prescribed or Continued at Discharge
[2017-05-20] MEDS ORDERED: LEVEMIR FL100 UNIT/1 SC ×2 (10:00→10:25)
[2017-05-20] MEDS ORDERED: WARFARIN SODIUM5 M1 PO (10:38)
[2017-05-20] MEDS ORDERED: ATORVASTATIN CA10 M1 PO (10:38)
[2017-05-20] MEDS ORDERED: LISINOPRIL10 M1 PO (10:38)
[2017-05-20 14:32] VITALS: BP 140/72
== END 2017-05-20 16:10 | DRG 420 ==
LOC: ERH 17:47 → ERHI 18:57 → 2NB 18:57 → ENRESERV 21:28 → ENTRNSPT 22:47 → 2NB 23:06 → CMPTRNSPT 05-18 07:02 → 2NB 05-18 08:21
PROVIDERS: Dermatology; Physician Assistant Medical; Student in an Organized Health Care Education/Training Program
DX: E11.00 Type 2 diabetes mellitus with hyperosmolarity without nonketotic hyperglycemic-hyperosmolar coma (NKHHC) (principal); E87.2 Acidosis; K51.90 Ulcerative colitis, unspecified, without complications; I48.91 Unspecified atrial fibrillation; I82.509 Chronic embolism and thrombosis of unspecified deep veins of unspecified lower extremity; Z79.84 Long term (current) use of oral hypoglycemic drugs; R74.0 Nonspecific elevation of levels of transaminase and lactic acid dehydrogenase [LDH]; Z79.01 Long term (current) use of anticoagulants; I10 Essential (primary) hypertension; F10.20 Alcohol dependence, uncomplicated; Z91.14 Patient's other noncompliance with medication regimen; Z90.49 Acquired absence of other specified parts of digestive tract; Z85.038 Personal history of other malignant neoplasm of large intestine; R79.1 Abnormal coagulation profile; F41.9 Anxiety disorder, unspecified; E87.6 Hypokalemia
CPT/HCPCS: 2NBSP; 36592; 81003; 82436; 93005; 93010; 96360; 96361; 99291